=== PATIENT | female | born 2005 ===

== ENCOUNTER 2024-10-20 23:35 | Emergency (ER) | payer MEDICAID ==
[~2024-10-20] VITALS: Ht 172.7 cm; Wt 65.9 kg
[2024-10-20 23:42] VITALS: TEMP 98.3
[2024-10-21 01:00] LABS: URINE APPEARANCE CLEAR (CLEAR/HAZY); URINE BLOOD 3+ (NEGATIVE); URINE COLOR YELLOW (YELLOW); URINE GLUCOSE NEGATIVE (NEGATIVE); URINE KETONE NEGATIVE (NEGATIVE); URINE NITRATE NEGATIVE (NEGATIVE); URINE PROTEIN(semi-quant) TRACE (NEGATIVE)
[2024-10-21 01:18] LABS: MUCOUS PRESENT (NOT PRESENT); URINE BACTERIA RARE /hpf (NONE SEEN); URINE RBC 20-50 /hpf (0-2)
[2024-10-21 01:26] LABS: COLLECTION METHOD CLEAN CATCH
[2024-10-21 01:52] VITALS: BP 148/84; PULSE 79
[2024-10-21] MEDS ORDERED: ZITHROMAX500 M2 PO (10:38)
== END 2024-10-21 02:31 | disposition home or self-care (01) ==
LOC: COL.ER 23:35
PROVIDERS: Emergency Medicine
DX: O20.9 Hemorrhage in early pregnancy, unspecified (principal); Z3A.01 Less than 8 weeks gestation of pregnancy

== ENCOUNTER 2024-10-21 14:04 | Outpatient (CLI) | payer MEDICAID ==
[~2024-10-21] VITALS: Ht 172.7 cm; Wt 65.9 kg
[~2024-10-21 14:04] MED LIST: ZITHROMAX500 M2 PO
[2024-10-22] MEDS ORDERED: cefTRIAXone 500 MG,Lidocaine PF 1% 1 ML IM ONE (09:00)
[2024-10-22 10:05] VITALS: BP 143/85; PULSE 90; TEMP 98.5
== END 2024-10-22 ==
LOC: EUO 10-22 08:48 → COL.ER 10-22 08:48 → COL.RAD 10-22 08:48 → COL.ER 10-22 14:03 → EUO 10-22 14:04
DX: O20.9 Hemorrhage in early pregnancy, unspecified (principal); Z3A.00 Weeks of gestation of pregnancy not specified
CPT/HCPCS: J0696